=== PATIENT | male | born 1960 | race African-American/Black ===

== ENCOUNTER → 2016-09-27 | Outpatient (CLI) | payer OTHER ==
[2016-09-27 16:08] LABS: ABSOLUTE EOSINOPHILS # (AUTO) 0.1 10^3/uL (0.0-0.6); ABSOLUTE LYMPHOCYTES (AUTO) 1.7 10^3/uL (0.5-4.7); ABSOLUTE MONOCYTES (AUTO) 0.5 10^3/uL (0.1-1.4); ABSOLUTE NEUT (AUTO) 3.1 10^3/uL (1.7-8.2); BASOPHILS % (AUTO) 0.6 % (0-2); EOSINOPHILS % (AUTO) 2.3 % (0-6); HEMATOCRIT 39.5 % (37.9-51.0); HEMOGLOBIN 13.5 g/dL (13.5-17.0); LYMPHOCYTES % (AUTO) 31.4 % (13-45); MEAN CORPUSCULAR HEMOGLOBIN 27.6 pg (27.0-33.4); MEAN CORPUSCULAR HGB CONC 34.1 g/dL (32.0-36.0); MEAN CORPUSCULAR VOLUME 81 fl (80-97); MONOCYTES % (AUTO) 8.6 % (3-13); RED BLOOD COUNT 4.89 10^6/uL (4.35-5.55); RED CELL DISTRIBUTION WIDTH 13.8 % (11.5-14.0); SEGMENTED NEUTROPHILS % (AUTO) 57.1 % (42-78); WHITE BLOOD COUNT 5.4 10^3/uL (4.0-10.5)
[2016-09-27 16:22] LABS: ALANINE AMINOTRANSFERASE 34 U/L (21-72); ALBUMIN 4.7 g/dL (3.5-5.0); ALKALINE PHOSPHATASE 61 U/L (38-126); ANION GAP 11 (5-19); ASPARTATE AMINO TRANSFERASE 28 U/L (17-59); BILIRUBIN,DIRECT 0.4 mg/dL (0.0-0.4); BILIRUBIN,TOTAL 0.6 mg/dL (0.2-1.3); BLOOD UREA NITROGEN 12 mg/dL (7-20); CARBON DIOXIDE 25 mmol/L (22-30); CHLORIDE 104 mmol/L (98-107); CREATININE RESULT 0.97 mg/dL (0.52-1.25); GLUCOSE 99 mg/dL (75-110); POTASSIUM 4.3 mmol/L (3.6-5.0); SODIUM 140.1 mmol/L (137-145); TOTAL PROTEIN 7.8 g/dL (6.3-8.2)
== END ==
LOC: OD 15:22
PROVIDERS: ATTEND Orthopaedic Surgery Hand Surgery
DX: Z11.2 Encounter for screening for other bacterial diseases (principal); I10 Essential (primary) hypertension
CPT/HCPCS: 36415; 80053; 85025; 87070